=== PATIENT | male | born 1950 | race Caucasian/White ===

== ENCOUNTER 2017-04-29 12:25 | Emergency (ER) | payer OTHER, MEDICARE ==
[~2017-04-29] VITALS: Ht 182.9 cm; Wt 93.0 kg
[~2017-04-29 12:25] MED LIST: DILAUDID2 MG PO; FLOMAX0.4 MG PO; PERCOCET 5/31 TABLET PO; ZOFRAN4 MG PO
[2017-04-29 13:10] LABS: HEMATOCRIT 47.6 % (38.0-50.0); MCH 30.1 PG (29.0-34.0); MCHC 34.9 G/DL (30.0-36.0); MCV 86.4 FL (86-99); MEAN PLAT.VOLUME 9.5 uM^3 (9.0-12.4); PLATELET COUNT 238 K/uL (156-360); RBC DIS.WIDTH-CV 13.1 % (11.8-14.6); RBC DIS.WIDTH-SD 40.9 % (39-53); RED BLOOD COUNT 5.51 M/uL (4.00-5.50)
[2017-04-29 13:16] LABS: CHLORIDE 106 mEq/L (99-109); POTASSIUM 3.9 mEq/L (3.7-5.4); SODIUM 142 mEq/L (136-147)
[2017-04-29 13:18] LABS: GLUCOSE 93 mg/dL (70-99)
[2017-04-29 13:19] LABS: ANION GAP 11 MEQ/L (2-14)
[2017-04-29 13:22] LABS: GFR ESTIMATE (CALCULATED) > 59 mL/min/
[2017-04-29 13:23] LABS: UREA NITROGEN (BUN) 15 mg/dL (9-23)
[2017-04-29 13:27] LABS: TROP-I INTERPRETATION NEGATIVE; TROPONIN-I 0.01 ng/mL (0.0-0.30)
[2017-04-29 17:13] LABS: TROP-I INTERPRETATION NEGATIVE; TROPONIN-I < 0.01 ng/mL (0.0-0.30)
[2017-04-29 18:13] VITALS: BP 118/96
== END 2017-04-29 18:15 | disposition home or self-care (01) ==
LOC: EME 12:25 → EXP 12:25
PROVIDERS: Physician Assistant
DX: R07.9 Chest pain, unspecified (principal)
CPT/HCPCS: 71020; 72040; 80048; 84484; 85027; 93005; 99281; 99284